=== PATIENT | male | born 1975 | race African-American/Black ===

== ENCOUNTER 2020-04-30 16:30 | Emergency (ER) | payer MEDICAID ==
[~2020-04-30] VITALS: Ht 180.3 cm; Wt 91.0 kg
[2020-04-30] MEDS ORDERED: BACITRACIN ZINC OINT UDPKT TOP ONE (17:00)
[2020-04-30] MEDS ORDERED: LIDOCAINE 1%/EPI 1:100,000 10 ML VIAL IJ ONE (17:00)
[2020-04-30] MEDS ORDERED: ACETAMINOPHEN 325MG TABLET PO ONE (17:00)
[2020-04-30] MEDS ORDERED: LIDOCAINE HCL/EPINEPHRINE 1%-EPI 1:100,000 20 ML VIAL INFIL NR (17:09)
[2020-04-30 17:50] VITALS: BP 118/71
== END 2020-04-30 17:51 | disposition home or self-care (01) ==
LOC: ER 16:30
DX: L02.211 Cutaneous abscess of abdominal wall (principal)
CPT/HCPCS: 10060; 99283; J3490

== ENCOUNTER 2020-08-28 05:35 | Emergency (ER) | payer MEDICAID ==
[~2020-08-28] VITALS: Ht 177.8 cm; Wt 82.0 kg
[2020-08-28] MEDS ORDERED: IBUPROFEN 600MG TABLET PO ONE (07:00)
[2020-08-28] MEDS ORDERED: HYDROXYZINE 25MG TABLET PO ONE (07:00)
[2020-08-28] MEDS ORDERED: HYDR-3735 MT (08:42)
[2020-08-28] MEDS ORDERED: IBUP-2029 MT (08:42)
[2020-08-28 09:37] VITALS: BP 130/90
== END 2020-08-28 09:38 | disposition home or self-care (01) ==
LOC: ER 05:35
DX: S40.022A Contusion of left upper arm, initial encounter (principal); M79.602 Pain in left arm; F41.0 Panic disorder [episodic paroxysmal anxiety]; F41.9 Anxiety disorder, unspecified; Y08.89XA Assault by other specified means, initial encounter; Y93.9 Activity, unspecified; Y92.9 Unspecified place or not applicable
CPT/HCPCS: 73060; 99283; Z7610

== ENCOUNTER 2020-12-11 15:53 | Emergency (ER) | payer MEDICAID ==
[~2020-12-11] VITALS: Ht 185.4 cm; Wt 91.0 kg
[2020-12-11 15:53] VITALS: BP 108/68
[~2020-12-11 15:53] MED LIST: HYDR-3735 MT; IBUP-2029 MT
[2020-12-11] MEDS ORDERED: BACITRACIN ZINC OINT UDPKT TOP ONE (16:30)
[2020-12-11] MEDS ORDERED: ACETAMINOPHEN 325MG TABLET PO ONE (16:30)
[2020-12-11] MEDS ORDERED: TETANUS, DIPHTHERIA, PERTUSSIS VAC/PF 0.5ML (>7YR OLD) IM ONE (16:30)
[2020-12-11] MEDS ORDERED: ACET-2708 MT (17:22)
[2020-12-11] MEDS ORDERED: BO1 TP (17:24)
== END 2020-12-11 18:25 | disposition home or self-care (01) ==
LOC: ER 15:53
DX: S09.8XXA Other specified injuries of head, initial encounter (principal); S00.81XA Abrasion of other part of head, initial encounter; Y08.89XA Assault by other specified means, initial encounter; Y93.89 Activity, other specified; Y92.9 Unspecified place or not applicable; F41.9 Anxiety disorder, unspecified; F32.9 Major depressive disorder, single episode, unspecified
CPT/HCPCS: 90471; 90715; 99284

== ENCOUNTER 2021-09-02 05:54 | Emergency (ER) | payer MEDICAID ==
[~2021-09-02] VITALS: Ht 180.3 cm; Wt 80.0 kg
[~2021-09-02 05:54] MED LIST changes: +ACET-2708 MT; +BO1 TP
[2021-09-02] MEDS ORDERED: LIDOCAINE HCL/PF 1% 10 MG/ML 5ML VIAL INFIL ONE (06:45)
[2021-09-02] MEDS ORDERED: LIDOCAINE HCL 1% 20ML VIAL (Pyxis) INJ INFIL SCH (07:10)
[2021-09-02 08:00] VITALS: BP 89/52
== END 2021-09-02 08:55 | disposition home or self-care (01) ==
LOC: ER 05:54
DX: S51.811A Laceration without foreign body of right forearm, initial encounter (principal); X58.XXXA Exposure to other specified factors, initial encounter; Y93.89 Activity, other specified; Y92.89 Other specified places as the place of occurrence of the external cause; Y99.8 Other external cause status
CPT/HCPCS: 12001; 99282; J3490

== ENCOUNTER 2022-11-10 16:28 | Emergency (ER) | payer MEDICAID ==
[~2022-11-10] VITALS: Ht 172.7 cm; Wt 75.0 kg
[2022-11-10 16:41] VITALS: BP 137/80
== END 2022-11-10 22:30 | disposition left against medical advice (07) ==
LOC: ER 16:28
DX: Z53.21 Procedure and treatment not carried out due to patient leaving prior to being seen by health care provider (principal)
CPT/HCPCS: 99281

== ENCOUNTER 2024-12-11 13:41 | Emergency (ER) | payer MEDICAID ==
[~2024-12-11] VITALS: Ht 177.8 cm; Wt 82.0 kg
[2024-12-11 13:48] VITALS: O2SAT 96
[2024-12-11] MEDS: IBUPROFEN 600MG TABLET PO ONE (14:09)
[2024-12-11] MEDS ORDERED: IBUP-2029 MT (16:16)
[2024-12-11 16:45] VITALS: BP 123/72; PULSE 63; RESP 16; TEMP 36.9; O2SAT 97
== END 2024-12-11 16:49 | disposition home or self-care (01) ==
LOC: ER 13:41
DX: S83.91XA Sprain of unspecified site of right knee, initial encounter (principal); F12.90 Cannabis use, unspecified, uncomplicated; W19.XXXA Unspecified fall, initial encounter; Y93.01 Activity, walking, marching and hiking; Y92.89 Other specified places as the place of occurrence of the external cause; Y99.8 Other external cause status
CPT/HCPCS: 73700; 99284; Z7610; L1830